=== PATIENT | female | born 1985 ===

== ENCOUNTER 2018-02-26 13:16 | Emergency (ER) | payer OTHER ==
[2018-02-26 13:24] VITALS: BMI 28.5
[2018-02-26 13:25] VITALS: O2SAT 100
--- NOTE | 2018-02-26 14:52 | ED PDOC ---
HPI: Female Pain Time Seen by Provider: 02/26/18 13:41 Chief Complaint (Nursing): Female Genitourinary History Per: Patient History/Exam Limitations: no limitations Additional Complaint(s): at approximately 6 weeks gestation presenting with vaginal bleeding since this morning. States a small amount. Denies abdominal pain. No fevers, nausea, vomiting. No medical problems. Past Medical History Reviewed: Historical Data, Nursing Documentation Vital Signs: Last Vital Signs Temp 98.8 F 02/26/18 13:24 Pulse 72 02/26/18 13:24 Resp 17 02/26/18 13:24 BP 119/78 02/26/18 13:24 Pulse Ox 100 02/26/18 13:24 - Medical History PMH: No Chronic Diseases Denies: Chronic Kidney Disease - Family History Family History: States: Unknown Family Hx - Allergies Allergies/Adverse Reactions: Allergies Allergy/AdvReac Type Severity Reaction Status Date / Time No Known Allergies Allergy Verified 02/26/18 13:50 Review of Systems ROS Statement: Except As Marked, All Systems Reviewed And Found Negative Genitourinary Female: Positive for: Vaginal Bleeding. Negative for: Pelvic Pain Physical Exam - Reviewed Nursing Documentation Reviewed: Yes Vital Signs Reviewed: Yes - Physical Exam Appears: Positive for: Well, Non-toxic, No Acute Distress Head Exam: Positive for: ATRAUMATIC, NORMAL INSPECTION, NORMOCEPHALIC Skin: Positive for: Normal Color, Warm, DRY Eye Exam: Positive for: EOMI, Normal appearance, PERRL ENT: Positive for: Normal ENT Inspection Neck: Positive for: Normal, Painless ROM Cardiovascular/Chest: Positive for: Regular Rate, Rhythm Respiratory: Positive for: CNT, Normal Breath Sounds Gastrointestinal/Abdominal: Positive for: Normal Exam, Soft. Negative for: Tenderness Pelvic Exam: Positive for: No Cerv. 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 Negative for: Tender W/Cervical Motion Back: Positive for: Normal Inspection Extremity: Positive for: Normal ROM Neurologic/Psych: Positive for: Alert, Oriented - Laboratory Results Result Diagrams: 02/26/18 14:34 02/26/18 14:34 - ECG O2 Sat by Pulse Oximetry: 100 Pulse Ox Interpretation: Normal Medical Decision Making Medical Decision MakinPM Patient presenting with vaginal bleeding --well appearing otherwise, stable vitals --threatened Ab v. ectopic v. implantation bleeding --will get labs, u/s, and re-eval 345PM --U/S shows no IUP --Possibly spontaneous Ab, possibly ectopic --Will need to return in 2 days for repeat beta and U/S --Explained results to patient in Azeri --Well appearing upon discharge Disposition - Clinical Impression Clinical Impression: Vaginal bleeding during - Disposition [facility] Disposition: Routine/Home Disposition Time: 15:45 Condition: GOOD Instructions: Bleeding With , Threatened Miscarriage (DC) Forms: [employer] (Bengali) Print Language: SLOVAK
[2018-02-26 14:57] LABS: HEMOGLOBIN 13.6 g/dL (12.0-16.0); MEAN CELL VOLUME 88.4 fl (81.0-99.0); RBC 4.54 Mil/uL (3.80-5.20); WHITE BLOOD COUNT 5.4 K/uL (4.8-10.8)
[2018-02-26 15:21] LABS: BLOOD UREA NITROGEN 12 mg/dl (7-17); CALCIUM 9.9 mg/dL (8.4-10.2); GFR NON-AFRICAN AMERICAN > 60
--- NOTE | 2018-02-26 15:42 | US ---
Date of service: 02/26/2018 HISTORY: @ 6wks, VB LMP 01/12/2018 Eight HCG results are pending. COMPARISON: None available. TECHNIQUE: Transvaginal only. Real -time technique with 2D, duplex and color Doppler FINDINGS: UTERUS: Measures 4.4 x 4.0 x 7.8 cm. Normal in size and appearance. No fibroid or other mass lesion seen. ENDOMETRIUM: Measures 11.7 mm in diameter. Cystic structure which is irregular with a mean diameter of 6.6 mm. Below the threshold for calculation of a reliable gestational age CERVIX: No cervical abnormality identified. RIGHT OVARY: Measures 2.7 x 3 x 3.2 cm. No solid mass. Normal flow. Simple cyst 2 x 1.7 x 1.9 cm. LEFT OVARY: Measures 1.1 x 1.6 x 2.1 cm. No solid mass. Normal flow. Complex cyst/debris laden or hemorrhagic. This measures 1.2 x 1.3 x 0.8 cm. FREE FLUID: No significant free fluid noted. OTHER FINDINGS: None. IMPRESSION: Irregular saclike structure in the endometrial canal without evidence of gestational pole or yolk sac. Simple cyst right adnexa. Complex cyst left adnexa.
[2018-02-26 17:06] VITALS: BP 113/73; PULSE 68; RESP 16; TEMP 99
== END 2018-02-26 17:00 | disposition home or self-care (01) ==
LOC: H.ER 13:16
DX: O20.9 Hemorrhage in early pregnancy, unspecified (principal); Z3A.01 Less than 8 weeks gestation of pregnancy
CPT/HCPCS: 76817; 80048; 81025; 84702; 85027; 86850; 86900; 99285; J2792

== ENCOUNTER 2018-02-28 07:41 | Emergency (ER) | payer SELFPAY ==
[2018-02-28 07:42] VITALS: BMI 28.5
--- NOTE | 2018-02-28 08:06 | ED PDOC ---
HPI: General Adult Time Seen by Provider: 02/28/18 07:52 Chief Complaint (Nursing): Female Genitourinary Chief Complaint (Provider): Repeat Labs History Per: Patient History/Exam Limitations: no limitations Onset/Duration Of Symptoms: Days (x2) Additional Complaint(s): 32 year old female presents to the ED for a repeat beta-HCG. She reports being seen here two days ago, approx. 6 week at the time, for vaginal bleeding. Today, she reports the bleeding is less, and denies any associated abdominal pain. PMD: none provided Past Medical History Reviewed: Historical Data, Nursing Documentation, Vital Signs Vital Signs: Last Vital Signs Temp 98.6 F 02/28/18 07:46 Pulse 82 02/28/18 07:46 Resp 15 02/28/18 07:46 BP 116/78 02/28/18 07:46 Pulse Ox 100 02/28/18 07:46 - Medical History PMH: No Chronic Diseases Denies: Chronic Kidney Disease - Surgical History Surgical History: No Surg Hx - Family History Family History: States: Unknown Family Hx - Social History Current smoker - smoking cessation education provided: No Alcohol: None Drugs: Denies - Allergies Allergies/Adverse Reactions: Allergies Allergy/AdvReac Type Severity Reaction Status Date / Time No Known Allergies Allergy Verified 02/28/18 08:14 Review of Systems ROS Statement: Except As Marked, All Systems Reviewed And Found Negative Gastrointestinal: Negative for: Abdominal Pain Genitourinary Female: Positive for: Vaginal Bleeding (less than previous visit) Physical Exam - Reviewed Nursing Documentation Reviewed: Yes Vital Signs Reviewed: Yes - Physical Exam Appears: Positive for: No Acute Distress Head Exam: Positive for: ATRAUMATIC, NORMOCEPHALIC Skin: Positive for: Normal Color, Warm Eye Exam: Positive for: Normal appearance Neck: Positive for: Normal, Painless ROM, Supple Cardiovascular/Chest: Positive for: Regular Rate, Rhythm Respiratory: Positive for: Normal Breath Sounds. Negative for: Respiratory Distress Gastrointestinal/Abdominal: Positive for: Normal Exam, Soft. Negative for: Tenderness Back: Positive for: Normal Inspection Extremity: Positive for: Normal ROM (all extremities) Neurologic/Psych: Positive for: Alert, Oriented (x3) - ECG O2 Sat by Pulse Oximetry: 100 (RA) Pulse Ox Interpretation: Normal Medical Decision Making Medical Decision Making: Time: 752 Initial Impression: repeat beta-HCG Initial Plan: --Beta-HCG, quant Beta-HCG from 02/26: 1449.00 Scribe Attestation: Documented by Adriane Higginbotham, acting as a scribe for Wally Welch MD. Provider Scribe Attestation: All medical record entries made by the Scribe were at my direction and personally dictated by me. I have reviewed the chart and agree that the record accurately reflects my personal performance of the history, physical exam, medical decision making, and the department course for this patient. I have also personally directed, reviewed, and agree with the discharge instructions and disposition. Disposition - Clinical Impression Clinical Impression: Miscarriage - Patient ED Disposition Is Patient to be Admitted: No Counseled Patient/Family Regarding: Studies Performed, Diagnosis, Need For Followup - Disposition [facility]] Disposition: Routine/Home Disposition Time: 09:41 Condition: FAIR Instructions: Miscarriage Forms: [employer] (Luxembourger) Print Language: KINYARWAN[place]
[2018-02-28 10:46] VITALS: BP 120/70; PULSE 70; RESP 20; TEMP 98; O2SAT 98
== END 2018-02-28 10:34 | disposition home or self-care (01) ==
LOC: H.ER 07:41
DX: O03.9 Complete or unspecified spontaneous abortion without complication (principal); Z3A.01 Less than 8 weeks gestation of pregnancy